=== PATIENT | female | born 1995 | race Caucasian/White ===

== ENCOUNTER 2017-04-04 18:57 | Emergency (ER) | payer OTHER ==
--- NOTE | 2017-04-04 20:19 | ER Document Report ---
ED Psych Disorder / Suicide - General TRAVEL OUTSIDE OF THE [place] IN LAST 30 DAYS: No <RADHA HUFF - Last Filed: 04/04/17 20:19> - General Mode of Arrival: Ambulatory Information source: Patient - officer - [facility] Patient complains to provider of: Suicidal ideation, Suicidal plan Onset: This evening Onset was: Gradual Severity: Moderate Suicide Risk Factors: Depressed, Lack of social support Situational problems related to: Other <SUN ALEXANDREMY - Last Filed: 04/05/17 04:08> - General Chief Complaint: Suicidal Ideation Stated Complaint: PSYCH EVALUATION Time Seen by Provider: 04/04/17 19:39 - Related Data Allergies/Adverse Reactions: ambesol Allergy (Uncoded 04/04/17 19:29) Past Medical History - Social History Smoking Status: Current Every Day Smoker Chew tobacco use (# tins/day): No Frequency of alcohol use: Heavy Drug Abuse: None Patient has suicidal ideation: Yes Patient has homicidal ideation: No Renal/ Medical History: Denies: Hx Peritoneal Dialysis Psychiatric Medical History: Reports: Hx Depression - and anxiety Past Surgical History: Reports: Hx Tonsillectomy <RADHA HUFF - Last Filed: 04/04/17 20:19> - General Information source: Patient - Social History Family History: Reviewed & Not Pertinent <SUN ALEXANDREMY - Last Filed: 04/05/17 04:08> Review of Systems - Review of Systems Constitutional: No symptoms reported Cardiovascular: No symptoms reported Respiratory: No symptoms reported Gastrointestinal: No symptoms reported Musculoskeletal: No symptoms reported Skin: No symptoms reported Neurological/Psychological: No symptoms reported, Depression, Suicidal ideation <SUN ALEXANDREMY - Last Filed: 04/05/17 04:08> Physical Exam - General General appearance: Appears well - Respiratory Respiratory status: No respiratory distress - Cardiovascular Rhythm: Regular Heart sounds: Normal auscultation - Back Back: Normal - Neurological Neuro grossly intact: Yes - Psychological Associated symptoms: Depressed. 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 Patient states that something occurred about 7 months ago over at her facility. She was given a temporary leave of absence and then returned. Since she has a history of major depression and is increasingly depressed since her has been deployed. She says for the last week she has thought about wanting to kill herself and tonight she says that she came to get help because she was going to kill herself either with alcohol or pills. On evaluation she is awake and alert GCS of 15 says that she drinks on occasion but is not acutely under the influence of alcohol. Acute medical screening examination laboratory evaluation is negative. I spoke with Dr. Larry our psychiatrist on-call here who stated that the patient should go over to [facility] since she is active duty . We called over to the facility and they said to discharge her the officer that is with her right now will take her over to the emergency department and get her admitted inpatient over at [facility] patient agrees to this and is stable to be discharged to go to [facility] to be inpatient evaluated by psychiatrist. (JIMMY ALEXANDRE) - Vital Signs Vital signs: Temp Pulse Resp BP Pulse Ox 98.1 F 66 18 114/75 99 04/04/17 22:40 04/04/17 22:40 04/04/17 22:40 04/04/17 22:40 04/04/17 22:40 - Laboratory Laboratory results interpreted by me: 04/04/17 04/04/17 19:56 20:36 Carbon Dioxide 21 L Urine Protein 30 H Urine Ketones 20 H Urine Blood MODERATE H Ur Leukocyte Esterase LARGE H Salicylates < 1.0 L Acetaminophen < 10 L Discharge <RADHA HUFF - Last Filed: 04/04/17 20:19> <JIMMY ALEXANDRE - Last Filed: 04/05/17 04:08> - Discharge Clinical Impression: suicidal ideation, Major depression, Alcohol abuse Condition: Stable Disposition: HOME, SELF-CARE Additional Instructions: Suicidal Ideation Suicidal ideation is a common medical term for thoughts about suicide, which may be as detailed as a formulated plan, without the suicidal act itself. Although most people who undergo suicidal ideation do not commit suicide, some go on to make suicide attempts. The range of suicidal ideation varies greatly from fleeting to detailed planning, role playing, and unsuccessful attempts. While thoughts about suicide are common, most people do not carry out serious actions to commit suicide. However, based upon your evalutation and discussion with you, we believe you are currently at risk to act upon your thoughts of suicide. Therefore, you will be admitted to a facility for inpatient care. We have spoken with the inpatient psychiatric unit over at [facility] and they asked us to discharge you to the emergency department where he will be admitted to their inpatient psychiatric facility. Scribe Attestation: 04/04/17 22:37 I personally performed the services described in the documentation reviewed the documentation recorded by my scribe in my presence and it accurately and completely records my words and actions (JIMMY ALEXANDRE)
[2017-04-04 20:57] LABS: ABSOLUTE BASOPHILS # (AUTO) 0.1 10^3/uL (0.0-0.2); ABSOLUTE EOSINOPHILS # (AUTO) 0.1 10^3/uL (0.0-0.6); ABSOLUTE LYMPHOCYTES (AUTO) 3.1 10^3/uL (0.5-4.7); ABSOLUTE MONOCYTES (AUTO) 0.7 10^3/uL (0.1-1.4); BASOPHILS % (AUTO) 0.7 % (0-2); EOSINOPHILS % (AUTO) 1.5 % (0-6); HEMATOCRIT 41.5 % (36.0-47.0); HEMOGLOBIN 14.2 g/dL (12.0-15.5); HGB HCT DIFFERENCE 1.1; LYMPHOCYTES % (AUTO) 34.4 % (13-45); MEAN CORPUSCULAR HEMOGLOBIN 29.3 pg (27.0-33.4); MEAN CORPUSCULAR HGB CONC 34.1 g/dL (32.0-36.0); MEAN CORPUSCULAR VOLUME 86 fl (80-97); RED BLOOD COUNT 4.83 10^6/uL (3.72-5.28); SEGMENTED NEUTROPHILS % (AUTO) 55.4 % (42-78)
[2017-04-04 21:05] LABS: APPEARANCE,URINE CLOUDY; BILIRUBIN,URINE NEGATIVE (NEGATIVE); GLUCOSE, URINE NEGATIVE (NEGATIVE); KETONES,URINE 20 mg/dL (NEGATIVE); LEUKOCYTE ESTERASE,URINE LARGE (NEGATIVE); NITRITE,URINE NEGATIVE (NEGATIVE); PROTEIN,URINE 30 mg/dL (NEGATIVE); URINE SPECIFIC GRAVITY 1.033; UROBILINOGEN,URINE NEGATIVE mg/dL (<2.0)
[2017-04-04 21:16] LABS: URINE BARBITURATES SCREEN NEGATIVE; URINE METHADONE SCREEN NEGATIVE; URINE OPIATES LOW NEGATIVE; URINE PHENCYCLIDINE SCREEN NEGATIVE
[2017-04-04 21:21] LABS: ALANINE AMINOTRANSFERASE 24 U/L (9-52); ALBUMIN 4.7 g/dL (3.5-5.0); ALCOHOL < 10 mg/dL (NONE DETECTED); ALKALINE PHOSPHATASE 65 U/L (38-126); ANION GAP 13 (5-19); ASPARTATE AMINO TRANSFERASE 19 U/L (14-36); BILIRUBIN,DIRECT 0.3 mg/dL (0.0-0.4); BILIRUBIN,TOTAL 1.3 mg/dL (0.2-1.3); BLOOD UREA NITROGEN 19 mg/dL (7-20); CALCIUM 9.4 mg/dL (8.4-10.2); CARBON DIOXIDE 21 mmol/L (22-30); CHLORIDE 107 mmol/L (98-107); CREATININE RESULT 0.79 mg/dL (0.52-1.25); GLUCOSE 82 mg/dL (75-110); POTASSIUM 3.8 mmol/L (3.6-5.0); TOTAL PROTEIN 7.2 g/dL (6.3-8.2)
--- NOTE | 2017-04-04 22:45 | EKG REPORT ---
SEVERITY:- ABNORMAL ECG - SINUS RHYTHM : Confirmed by: Anthony Ruiz 04-Apr-2017 22:44:53
[2017-04-04 22:58] VITALS: BP 114/75
== END 2017-04-04 23:00 | disposition home or self-care (01) ==
LOC: ER 18:57
DX: R45.851 Suicidal ideations (principal); F32.9 Major depressive disorder, single episode, unspecified; F10.10 Alcohol abuse, uncomplicated
CPT/HCPCS: 36415; 80053; 80307; 81001; 85025; 93005; 93010; 99285